=== PATIENT | female | born 1995 | race Two or more races ===

== ENCOUNTER 2016-09-22 16:26 | Emergency (ER) | payer MEDICAID ==
[~2016-09-22] VITALS: Ht 162.6 cm; Wt 68.0 kg
[2016-09-22 16:50] VITALS: BP 137/92
[2016-09-22] MEDS: METHOCARBAMOL 500 MG TAB PO ONE (17:26)
[2016-09-22] MEDS: ONDANSETRON HCL 4 MG/2 ML VIAL IM ONE (17:26)
[2016-09-22] MEDS: HYDROmorphone HCL 2 MG/ML VL IM ONE (17:27)
== END 2016-09-22 18:03 | disposition home or self-care (01) ==
LOC: EDBD 16:26 → ER 16:37
DX: G89.29 Other chronic pain (principal); M54.5 Low back pain
CPT/HCPCS: 96372; 99284; J1170; J2405